=== PATIENT | male | born 1970 | race Caucasian/White ===

== ENCOUNTER 2019-08-18 02:40 | Emergency (ER) | payer OTHER ==
--- NOTE | 2019-08-18 02:58 | EDM.PDOC ---
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 [facility] because upon his intake he was found to have an elevated blood pressure of 208 and a blood sugar of over 400. He is also inebriated. He was brought in by a police crime scene technician. When I go into the room he is laying on the stretcher awake and talking but he is somewhat belligerent. When I ask him what is wrong and how can I help him he goes into a dissertation that I should know which were all with him and I shouldn't be asking him that question. 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 I explained to him that I do not have x-ray vision and I would like to hear from him what is bothering him. He again went into a belligerent attitude stating that he didn't believe I was a doctor and that I should RD no trauma with him without him having to say a word. After which I left the room since he was not willing to talk to me. - Related Data Allergies Allergy/AdvReac Type Severity Reaction Status Date / Time No Known Allergies Allergy Verified 08/18/19 02:43 Home Meds: Home Meds . [Unable to Verify Home Med List] 08/18/19 [History] Past Medical History Cardiovascular History: Reports: High Cholesterol Endocrine/Metabolic History: Reports: Diabetes, Type I ED ROS GENERAL - Review of Systems Review Of Systems: Unable To Obtain ED EXAM GENERAL NO PERIP PULSE - Physical Exam Exam: See Below Text/Narrative:: The patient did allow me to examine him even though he was belligerent about his history. Exam Limited By: Intoxication General Appearance: Alert, WD/WN, No Apparent Distress Eye Exam: Bilateral Eye: Normal Inspection Ears: Normal External Exam Nose: Normal Inspection Throat/Mouth: Normal Inspection, Normal Lips, Normal Voice, No Airway Compromise Head: Normocephalic Neck: Supple Respiratory/Chest: No Respiratory Distress, Lungs Clear, Normal Breath Sounds Cardiovascular: Regular Rate, Rhythm, No Murmur GI/Abdominal: Soft Back Exam: Full Range of Motion Extremities: Normal Inspection, Normal Range of Motion Neurological: Alert, No Motor/Sensory Deficits, Other (Patient knows where he is ) Psychiatric: Other (The patient is somewhat belligerent and angry though he is not threatening at this time.) Skin Exam: Warm, Dry EKG INTERPRETATION EKG Date: 08/18/19 Time: 03:00 EKG Interpretation Comments: EKG shows a sinus tachycardia rate of 100, is no acute ST or T wave changes there is no ischemia noted Course - Vital Signs Last Recorded V/S: Last Vital Signs Temp 96.7 F 08/18/19 02:43 Pulse 104 H 08/18/19 02:43 Resp 18 08/18/19 02:43 BP 145/96 H 08/18/19 02:43 Pulse Ox 93 L 08/18/19 02:43 - Orders/Labs/Meds Orders: Active Orders 24 hr Category Date Time Status EKG 12 Lead [EKG Documentation Completion] [RC] STAT Care 08/18/19 02:49 Active Labs: Laboratory Tests 08/18/19 08/18/19 Range/Units 02:57 02:57 WBC 7.24 (4.23-9.07) K/mm3 RBC 4.58 L (4.63-6.08) M/mm3 Hgb 15.1 (13.7-17.5) gm/dl Hct 42.8 (40.1-51.0) % MCV 93.4 H (79.0-92.2) fl MCH 33.0 H (25.7-32.2) pg MCHC 35.3 (32.2-35.5) g/dl RDW Std Deviation 41.9 (35.1-43.9) fL Plt Count 117 L (163-337) K/mm3 MPV 10.1 (9.4-12.3) fl Neut % (Auto) 60.1 (34.0-67.9) % Lymph % (Auto) 26.2 (21.8-53.1) % [place] % (Auto) 7.9 (5.3-12.2) % Eos % (Auto) 5.1 (0.8-7.0) Baso % (Auto) 0.4 (0.1-1.2) % Neut # (Auto) 4.35 (1.78-5.38) K/mm3 Lymph # (Auto) 1.90 (1.32-3.57) K/mm3 [place] # (Auto) 0.57 (0.30-0.82) K/mm3 Eos # (Auto) 0.37 (0.04-0.54) K/mm3 Baso # (Auto) 0.03 (0.01-0.08) K/mm3 Sodium 139 (136-145) mEq/L Potassium 3.4 L (3.5-5.1) mEq/L Chloride 102 (98-107) mEq/L Carbon Dioxide 25 (21-32) mEq/L Anion Gap 15.4 H (5-15) BUN 18 (7-18) mg/dL Creatinine 0.8 (0.7-1.3) mg/dL Est Cr Clr Drug Dosing TNP Estimated GFR (MDRD) > 60 (>60) mL/min BUN/Creatinine Ratio 22.5 H (14-18) Glucose 268 H (74-106) mg/dL Calcium 9.1 (8.5-10.1) mg/dL Total Bilirubin 0.7 (0.2-1.0) mg/dL AST 55 H (15-37) U/L ALT 68 H (16-63) U/L Alkaline Phosphatase 127 H (46-116) U/L Troponin I < 0.017 (0.00-0.056) ng/mL Total Protein 8.1 (6.4-8.2) g/dl Albumin 3.9 (3.4-5.0) g/dl Globulin 4.2 gm/dL Albumin/Globulin Ratio 0.9 L (1-2) Ethyl Alcohol 0.33 (0.00) gm% Departure - Departure Time of Disposition: 03:44 Disposition: Home, Self-Care 01 Condition: Fair Clinical Impression: Elevated blood sugar, Normal blood pressure Alcohol intoxication Qualifiers: Complication of substance-induced condition: uncomplicated Qualified Code(s): F10.920 - Alcohol use, unspecified with intoxication, uncomplicated - Discharge Information *PRESCRIPTION DRUG MONITORING PROGRAM REVIEWED*: Not Applicable *COPY OF PRESCRIPTION DRUG MONITORING REPORT IN PATIENT MILAN: Not Applicable Instructions: Hyperglycemia, [id number] Forms: ED Department Discharge Additional Instructions: You need to follow-up with her family doctor regarding your mildly elevated blood sugar and also related to your elevated blood pressure though your blood pressure came down to normal when you're in the ER. We observed this patient for over an hour in the ER he remained coherent and did not stop talking the entire time. He did refused to speak to the ER physician but the ER physician did basic blood work and an alcohol level. The ER physician does not foresee any deterioration of the patient's condition in the near future. He does have some minor elevation of his blood sugar that needs to be monitored to make certain that he come back to normal since he is not willing to tell the ER physician if he has a problem with his blood sugars. Perhaps he will tell you. The patient was able to walk with no difficulty. He kept his balance without difficulty. And at no time did he seem to stop talking to the police crime scene technician that was at his side. If there are any further problems of significance have him return to the ER. - My Orders Last 24 Hours: My Active Orders 08/18/19 02:49 EKG 12 Lead [EKG Documentation Completion] [RC] STAT - Assessment/Plan Last 24 Hours: My Active Orders 08/18/19 02:49 EKG 12 Lead [EKG Documentation Completion] [RC] STAT
== END 2019-08-18 03:55 | disposition home or self-care (01) ==
LOC: SUPCPDRO 02:40 → JD.ED 02:40
DX: E10.65 Type 1 diabetes mellitus with hyperglycemia (principal)
CPT/HCPCS: 36415; 80053; 84484; 85025; 93005; 93010; 99283; 99284-25; G0480